=== PATIENT | male | born 1950 | race Caucasian/White ===

== ENCOUNTER → 2017-06-13 | Day surgery (SDC) | payer MEDICARE ==
[2017-06-12 09:44] VITALS: BMI 37.4
[~2017-06-13] MED LIST: Fentanyl 100 MCG/2 ML VIAL ONE; Midazolam HCl 2 mg/2 ml Vial ONE; Prevnar 13-Val Conj/PF 0.5 ML SYRINGE IM ONE; Sodium Bicarbonate 2.4 MEQ/5 ML ONE
[2017-06-13 07:52] LABS: #Basophils 0.1 thou/uL (0.0-0.2); #Eosinphils 0.4 thou/uL (0.0-0.7); #Lymphocytes 1.4 thou/uL (1.20-3.40); #Monocytes 0.9 thou/uL (0.11-0.59); #Neutrophils 5.3 thou/uL (1.40-6.50); %Basophils 1.2 % (0.0-1.0); %Eosinophils 4.4 % (0.0-10.0); %Lymphocytes 17.8 % (21.0-51.0); %Monocytes 10.6 % (0.0-10.0); %Neutrophils 65.8 % (42.0-75.0); Hemoglobin 11.8 g/dL (14.0-18.0); Mean Corpuscular HGB CONC 32.7 g/dL (32.0-36.0); Mean Corpuscular Hemoglobin 29.9 pg (27.0-31.0); Mean Corpuscular Volume 91.6 fl (80.0-94.0); Mean Platelet Volume 7.8 fL (7.4-10.4); Platelet Count 251 thou/uL (130-400); RBC Distribution Width 15.5 % (11.5-14.5); Red Blood Cell (RBC) Count 3.95 mill/uL (4.70-6.10)
[2017-06-13 08:00] LABS: PTT 30.2 SEC (22.9-36.1)
[2017-06-13 08:01] LABS: INR-International Normal Ratio 0.9; Prothrombin Time 12.6 SEC (12.0-14.7)
[2017-06-13 08:41] VITALS: TEMP 97.6
--- NOTE | 2017-06-13 15:15 | ULT ---
ULTRASOUND GUIDED PERCUTANEOUS RANDOM LEFT HEPATIC BIOPSY: DATE: 06/13/17. HISTORY: Elevated liver function tests. TECHNIQUE: The procedure including the risks and complications were explained to the patient and the patient's w carolyn, and informed consent was obtained. The patient was placed on the sonography table in the supine position. Limited sonographic evaluation was performed and an appropriate access site was localized in the epigastric region overlying the left hepatic lobe. This area was prepped and draped in the u sual sterile fashion. The skin and subcutaneous tissues were infiltrated with buffered 1% Lidocaine for local anesthesia. A small skin incision was made. A 17-gauge guide needle was advanced into the most peripheral aspect of the anterior left hepatic lobe. Utilizing coaxial technique and concurrent real-time ultrasound guidance, a single 18-gauge core needle biopsy specimen was obtained. The inner stylette was replace d. The needle was removed, and direct pressure was applied for approximately 12 minutes. Post proce dure sonogram demonstrates no perihepatic fluid and no hematoma is visualized. The patient's vital s igns remained stable during the procedure as well as post procedure. A dry sterile dressing was plac ed at the puncture site. The patient was transported to radiology nurse's holding for further monitoring prior to discharge. The patient tolerated the procedure well and without immediate complication. IMPRESSION: Technically successful ultrasound-guided percutaneous random left hepatic lobe biopsy. Pathology is currently pending at this time. POS: GABRIELLE
== END ==
LOC: ULT 07:33
PROVIDERS: ATTEND Internal Medicine Gastroenterology
PROC: BF45ZZZ Ultrasonography of Liver (ICD-10-PCS; principal; 2017-06-13)
PROC: 0FB23ZX Excision of Left Lobe Liver, Percutaneous Approach, Diagnostic (ICD-10-PCS; 2017-06-13)
DX: K75.81 Nonalcoholic steatohepatitis (NASH) (principal); G47.33 Obstructive sleep apnea (adult) (pediatric); I12.9 Hypertensive chronic kidney disease with stage 1 through stage 4 chronic kidney disease, or unspecified chronic kidney disease; E11.22 Type 2 diabetes mellitus with diabetic chronic kidney disease; N18.9 Chronic kidney disease, unspecified; E66.01 Morbid (severe) obesity due to excess calories; I25.10 Atherosclerotic heart disease of native coronary artery without angina pectoris; N40.0 Benign prostatic hyperplasia without lower urinary tract symptoms; F32.9 Major depressive disorder, single episode, unspecified; Z68.37 Body mass index [BMI] 37.0-37.9, adult; Z79.4 Long term (current) use of insulin; Z79.02 Long term (current) use of antithrombotics/antiplatelets; Z79.82 Long term (current) use of aspirin; Z79.899 Other long term (current) drug therapy; Z98.49 Cataract extraction status, unspecified eye; Z95.818 Presence of other cardiac implants and grafts; Z98.890 Other specified postprocedural states; Z87.891 Personal history of nicotine dependence
CPT/HCPCS: 36415; 47000; 76942; 85025; 85610; 85730; 88307; 88313; J2250; J3010

== ENCOUNTER 2020-06-19 07:53 | Outpatient (CLI) | payer MEDICARE ==
[2020-06-19 22:20] LABS: SARS-CoV-2 MS2 Positive; SARS-CoV-2 N Gene Negative; SARS-CoV-2 S Gene Negative; SARS-CoV-2 by NAA Not Detected (NotDetected); SARS-CoV-2 orf1ab Negative
== END 2020-06-19 07:54 | disposition home or self-care (01) ==
LOC: LABBT 07:53
PROVIDERS: ATTEND Ophthalmology Retina Specialist
DX: Z01.812 Encounter for preprocedural laboratory examination (principal); H33.21 Serous retinal detachment, right eye; H54.7 Unspecified visual loss; Z20.822 Contact with and (suspected) exposure to COVID-19
CPT/HCPCS: 87635; U0003

== ENCOUNTER 2020-06-22 07:20 | Day surgery (SDC) | payer MEDICARE ==
[2020-06-20 10:28] VITALS: BMI 36.6
[~2020-06-22 07:20] MED LIST changes: +EPINEPHrine 0.3 MG in Ophthalmic Irrigation Solution 500 ML IRR SCH; -Fentanyl 100 MCG/2 ML VIAL ONE; -Midazolam HCl 2 mg/2 ml Vial ONE; -Prevnar 13-Val Conj/PF 0.5 ML SYRINGE IM ONE; -Sodium Bicarbonate 2.4 MEQ/5 ML ONE
[2020-06-22] MEDS ORDERED: Phenylephrine 2.5% Ophth Soln 5 ML BOT ONE (08:06)
[2020-06-22] MEDS ORDERED: Cyclopentolate 1% Opth Drop 2 ML BOT ONE (08:06)
[2020-06-22] MEDS ORDERED: Midazolam HCl 2 mg/2 ml Vial ONE (09:56)
[2020-06-22] MEDS ORDERED: Fentanyl 100 MCG/2 ML VIAL ONE ×2 (09:56→11:01)
[2020-06-22] MEDS ORDERED: PROPOFOL 20 ML ONE (09:56)
[2020-06-22] MEDS ORDERED: CEFAZOLIN 1 GM VIAL ONE (11:55)
[2020-06-22] MEDS ORDERED: Maxitrol 0.1% Opth Oint 3.5 GM TUBE ONE (11:55)
[2020-06-22] MEDS ORDERED: Bupivacaine PF 0.75% SDV 10 ML ONE (11:55)
[2020-06-22] MEDS ORDERED: Triamcinolone 40 MG/ML VIAL ONE (11:55)
[2020-06-22] MEDS ORDERED: PROPOFOL 200 MG/20 ML VIAL ONE (11:55)
[2020-06-22] MEDS ORDERED: Lidocaine 1% PF 5 ML VIAL ONE (11:55)
[2020-06-22] MEDS ORDERED: Indocyanine Green 25 MG/10 ML VIAL ONE (11:55)
[2020-06-22] MEDS ORDERED: Lidocaine 4% PF 5 ML AMP ONE (11:55)
--- NOTE | 2020-06-22 20:28 | OP ---
DATE OF PROCEDURE: 06/22/2020 PREOPERATIVE DIAGNOSIS: Tractional retinal detachment and macular hole, right eye. POSTOPERATIVE DIAGNOSIS: Tractional retinal detachment and macular hole, right eye. PROCEDURES PERFORMED: Pars plana vitrectomy, tractional retinal detachment repair, macular hole repair, right eye. ANESTHESIA: Local anesthesia. DESCRIPTION OF PROCEDURE: The patient was prepped and draped in usual sterile manner for ophthalmic surgery. The patient was identified in the preoperative holding area. Appropriate informed consent for the planned surgical procedure on the right eye had been obtained. The patient was taken to the operative suite, where appropriate cardiopulmonary monitoring was established. Local anesthesia was obtained using retrobulbar modified Van Lint lid block using 50:50 mixture of 4% lidocaine, 0.75% bupivacaine. The patient was prepped and draped in usual sterile manner for ophthalmic surgery on the right eye. Lid speculum was placed in the right eye. 25-gauge trocar was placed through conjunctiva and sclera inferotemporally, superotemporally, inferonasally. Infusion line was placed inferotemporally. Light pipe vitreous cutter was inserted into the eye. Core vitrectomy was performed. Areas of traction were identified. These were elevated using end gripping forceps and vitreous cutter and carefully trimmed from the retinal surface. Bleeding was stopped using Endolaser delivery device. Indocyanine green dye was infused on the posterior pole, identifying the internal limiting membrane. This was elevated across and peeled across the macula. Panretinal photocoagulation was placed into the periphery and complete air-fluid exchange was performed. 28% sulfur hexafluoride gas was infused into the eye. Trocars were removed. Eye was noted to retain pressure well. Retrobulbar Kenalog and subconjunctival Ancef were placed. Antibiotic ointment was placed. The eye was patched and shielded. The patient was taken to postop recovery unit in good condition, having suffered no immediate perioperative complications. The patient was instructed to keep patch and shield on, avoid lifting or bending. Followup appointment with Dr. Turcios. Job ID: [id number]
== END 2020-06-22 12:52 | disposition home or self-care (01) ==
LOC: SDC 07:20
PROVIDERS: ATTEND Ophthalmology Retina Specialist
PROC: 08T43ZZ Resection of Right Vitreous, Percutaneous Approach (ICD-10-PCS; principal; 2020-06-22)
PROC: 08NE3ZZ Release Right Retina, Percutaneous Approach (ICD-10-PCS; 2020-06-22)
DX: H33.41 Traction detachment of retina, right eye (principal); H35.341 Macular cyst, hole, or pseudohole, right eye; Z79.02 Long term (current) use of antithrombotics/antiplatelets; Z79.4 Long term (current) use of insulin; Z79.82 Long term (current) use of aspirin; Z79.899 Other long term (current) drug therapy
CPT/HCPCS: 36416; 67025; J0171; J2250; J2704; J3010

== ENCOUNTER 2022-05-20 15:00 | Emergency (ER) | payer MEDICARE ==
[2022-05-20] MEDS ORDERED: Sodium Bicarb 50 MEQ/50 ML Abboject 8.4% SYRINGE ONE (15:02)
[2022-05-20] MEDS ORDERED: EPINEPHrine 1 MG/10 ML Abboject SYRINGE ONE (15:02)
[2022-05-20] MEDS ORDERED: Calcium Chloride 1 GM/10 ML Abboject SYRINGE ONE (15:02)
[2022-05-20] MEDS ORDERED: Bacitracin 1 PK ONE (17:14)
== END 2022-05-20 15:15 | disposition expired ==
LOC: ERS 15:00
DX: I46.9 Cardiac arrest, cause unspecified (principal); I11.0 Hypertensive heart disease with heart failure; I50.9 Heart failure, unspecified; E11.9 Type 2 diabetes mellitus without complications; E78.00 Pure hypercholesterolemia, unspecified; K21.9 Gastro-esophageal reflux disease without esophagitis; Z79.4 Long term (current) use of insulin
CPT/HCPCS: 92950; J0171